=== PATIENT | male | born 2000 | race Caucasian/White ===

== ENCOUNTER 2023-12-18 09:02 | Outpatient (CLI) | payer BC, SELFPAY ==
--- OUTSIDE RECORDS SUMMARY | 2023-12-18 09:05 | XMS_ITS | Clinical Summary ---
[facility] Address [address] [place] [address] Care Team Providers Care Zigzag Topstitcher Name Role Phone No Primary/Referring, Phy Primary Care Provider Unavailable Source Comments You are receiving this document as you are listed as the primary care provider,follow-up provider, or the patient has been referred to you for consultation.This is in compliance with the Medicare and[facility] EHR Incentive Program,which states Providers who transition their patient to another setting of careor provider of care or refers their patient to another provider of care shouldprovide summary care record for each transition of care or referral. [facility] Allergies Active Allergy Reactions Criticality Noted Date Comments Azithromycin Hives 02/13/2003 Penicillins Hives High 05/25/2017 Medications Medication Sig Dispensed Refills Start Date End Date Status clindamycin (AKA CLEOCIN T) 1 % external solution Use on the face daily; Use on the back twice a day 60 mL 2 10/04/2012 Active Additional Information Patient not taking.Reported on 05/25/2017 adapalene (AKA DIFFERIN) 0.1 % cream APPLY TO CLEAN DRY SKIN 1 HOUR BEFORE BEDTIME DIRECTED 90 g 0 05/21/2014 Active citalopram (CELEXA) 10 MG tabletIndications:GA D (generalized anxiety disorder) (HRC) Take 1 Tab by mouth daily. 30 Tab 05/25/2017 Active clonazePAM (KLONOPIN) 1 MG tabletIndications:Pa kendal attacks (HRC),Acute anxiety (HRC) Take 1 Tab by mouth two times daily as needed for Anxiety or Panic Attack. 30 Tab 05/29/2017 Active hydrOXYzine HCl (ATARAX) 50 MG tabletIndications:GA D (generalized anxiety disorder) (HRC) Take 1 Tab by mouth three times a day as needed. 30 Tab 05/29/2017 Active Active Problems Problem Noted Date Diagnosed Date Marijuana use, episodic 05/29/2017 MARKELL (generalized anxiety disorder) 05/26/2017 Acne 10/04/2012 Ventricular septal defect 09/28/2005 Overview: LW Onset: [id number] ; Ventricular Septal Defect Congenital Nocturnal enuresis 09/24/2005 Overview: LW Onset: 12Ftg04 ; Enuresis Nocturnal Sleep Hearing loss 11/16/2002 Overview: Hearing Loss NOS Immunizations Name Administration Dates Next Due 4vHPV (Gardasil) 06/03/2013,01/01/2013 DTaP 02/13/2003, 9,1998,03/16 DTaP/Hib 07/21/1999 HepB Adult (Engerix-B, 20+ y rs, 3 dose series) 1998,1998,1998 Hib (ActHIB) 1998,1998,1998 IPV (Polio) 02/13/2003 MMR 02/13/2003,07/21/1999 Meningococcal MCV4, Unspecif ied Formulation 10/27/2009 OPV, Trivalent (Orimune or tOPV) 1998,05/12,1998 Tdap 10/27/2009 Varicella 10/27/2009,01/28/1999 Family History Medical History Relation Name Comments Anxiety Father Relation Name Status Comments Father Alive Mother Alive Social History Tobacco Use Types Packs/Day Years Used Date Smoking Tobacco: Some Days Pipe Smokeless Tobacco: Never Comments:ecig Alcohol Use Standard Drinks/Week Comments No 0 (1 standard drink = 0.6 oz pur e alcohol) Sex and Gender Information Value Date Recorded Sex Assigned at Not on file Gender Identity Not on file Sexual Orientation Not on file Last Filed Vital Signs Vital Sign Reading Time Taken Comments Blood Pressure 137/80 08/16/2019 1:32 AM ADJUNCT WRITING INSTRUCTOR Pulse 108 08/16/2019 1:32 AM ADJUNCT WRITING INSTRUCTOR Temperature 37.3 ??C (99.1 ??F) 08/16/2019 1:32 AM CS T Respiratory Rate 18 08/16/2019 1:32 AM ADJUNCT WRITING INSTRUCTOR Oxygen Saturation 100% 08/16/2019 1:32 AM ADJUNCT WRITING INSTRUCTOR Inhaled Oxygen Concentration - - Weight 64.9 kg (143 lb) 05/29/2017 1:33 PM ADJUNCT WRITING INSTRUCTOR Height 154.9 cm (5' 1) 05/25/2017 3:12 PM ADJUNCT WRITING INSTRUCTOR Body Mass Index 27.02 05/25/2017 3:12 PM ADJUNCT WRITING INSTRUCTOR Plan of Treatment Health Maintenance Due Date Last Done Comments Hep C Screening (Preventive Services) 1998 Pneumococcal (1 - PCV) 01/11/2004 HIV Screening (Preventive Services) 2014 Adult Preventive Visit 01/11/2016 DTaP/Tdap/Td (7 - Tdap) 10/28/2019 10/28/19 10, 02/13/2003, 07/21/1999, Additional history exists COVID-19 Vaccine ( season) 2023 Influenza (#1) 2024 03/16/2010, 03/17/2009 Zoster/Shingles (1 of 2) 01/11/2048 HepB Completed 1998, 05/12, 1998 Hib Completed 07/21/1999, 01/1999, 1998, Additional history exists IPV (Polio) Completed 02/13/2003, 01/1999, 1998, Additional history exists MCV4 Aged Out 10/27/2009 No longer eligi ble based on patient's age to complete this topic Varicella Completed 10/27/2009, 01/28/1999 HPV Vaccine Completed 06/03/2013, 01/01/2013 HepA Aged Out No longer eligi ble based on patient's age to complete this topic Care Teams Zigzag Topstitcher Relationship Specialty Start Date End Date No Primary/Referring, Phy PCP - General 08/16/19
--- OUTSIDE RECORDS SUMMARY | 2023-12-18 09:05 | XMS_ITS | Referral Summary ---
Author Organization [facility] Address [address] [place] [id number] Care Team Providers Care Agricultural Inspector Name Role Phone No Ref-Primary, Physician Primary Care Provider Allergies No known active allergies Medications Medication Sig Dispensed Refills Start Date End Date Status CITALOPRAM HYDROBROMIDE PO Take 10 mg by mouth daily Active CLONAZEPAM PO Take 1 mg by mouth 2 times daily as needed for anxiety Active HYDROXYZINE HCL PO Take 50 mg by mouth 3 times daily as needed for itching Active Social History Tobacco Use Types Packs/Day Years Used Date Smoking Tobacco: Never Assessed Sex and Gender Information Value Date Recorded Sex Assigned at Not on file Gender Identity Not on file Sexual Orientation Not on file Last Filed Vital Signs Vital Sign Reading Time Taken Comments Blood Pressure 116/73 05/30/2017 6:03 PM SENIOR MECHANICAL PROJECT ENGINEER Pulse - - Temperature 36.6 ??C (97.8 ??F) 05/30/2017 4:10 PM CS T Respiratory Rate 18 05/30/2017 4:10 PM SENIOR MECHANICAL PROJECT ENGINEER Oxygen Saturation 98% 05/30/2017 6:03 PM SENIOR MECHANICAL PROJECT ENGINEER Inhaled Oxygen Concentration - - Weight - - Height - - Body Mass Index - - Plan of Treatment Not on file Care Teams Agricultural Inspector Relationship Specialty Start Date End Date No Ref-Primary, Physician PCP - General 05/30/17
--- OUTSIDE RECORDS SUMMARY | 2023-12-18 09:05 | XMS_ITS | Clinical Summary ---
Author Organization [facility] Address [address] [place] [id number] Care Team Providers Care Human Resources Consultant Name Role Phone No Ref-Primary, Physician Primary [...] Comments Blood Pressure 116/73 05/30/2017 6:03 PM TALLOW PUMPER Pulse - - Temperature 36.6 ??C (97.8 ??F) 05/30/2017 4:10 PM CS T Respiratory Rate 18 05/30/2017 4:10 PM TALLOW PUMPER Oxygen Saturation 98% 05/30/2017 6:03 PM TALLOW PUMPER Inhaled Oxygen Concentration - - Weight - - Height - - Body Mass Index - - Plan of Treatment Not on file Care Teams Human Resources Consultant Relationship Specialty Start Date End Date No Ref-Primary, Physician PCP - General 05/30/17
--- OUTSIDE RECORDS SUMMARY | 2023-12-18 09:05 | XMS_ITS | Data Portability ---
Author Organization [facility] Address [address] [place] [address] [address] [place] [address] Assessment Encounter Date Assessment Date Assessment LastModified by Organization Details LastModified Time 11/12/2018 11/12/2018 OK for admission into residential rehab facility. Pt is free of communicable diseases per self report. Labs: declined blood work Please have patient follow with in house psychiatry. Follow with [facility] as needed estarita Not available 11/12/2018 11:23:55 Plan of Treatment Reminders Order Date Submit Date Provider Last Modified By Organization Details Last Modified Time Details Appointments None recorded. Lab CT + NG RNA, PCR, unspecified specimen 2018 [address] [place] [facility], [address] , [place], [address], 9 06:12:38 Referral None recorded. Procedures None recorded. Surgeries None recorded. Imaging None recorded. Medication Orders None recorded. Patient TargetsNo targets recorded. Patient InstructionsNo instructions recorded. Reason for Referral None Reported. Results Created Date Observation Date Name Description Value Unit Range Abnormal Flag LastModifiedBy Organization Detail LastModifiedTime 11/13/1911/16/2018 CT + NG RNA, PCR, unspe cifie d speci men chlamydia trachomatis, DANIEL Negati ve negati ve Not Available [facility] ([facility]) [address] [place], [address], 11/16/2018 06:12:38 11/13/19 19 11/16/2018 CT + NG RNA, PCR, unspe cifie d speci men neisseria gonorrhoeae, DANIEL Negati ve negati ve Not Available [facility] ([facility]) [address] [place], [address], 11/16/2018 06:12:38 Result Notes None recorded. 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 Medical Equipment None Reported. Allergies Allergen ID Allergen Name Allergen Category Reaction Reaction Severity Criticality Documentation Date Start Date Code Code System Note Provider Name and Address Organization Details Recorded Time 82683 Medicinal product containin g penicilli n and acting as antibacte rial agent (product) medicatio n hives moderate Not available 11/12/2018 86806 05 SNOMED Georgina [place]udd, [place] - [facility] 9 11:22:25 Medications Name Sig Start Date Stop Date Status Note LastModified by Organization Details LastModified Time citalopram 20 mg tablet Take 1 tablet every day by oral route. active Not Available Not Available No t Available Vitals Date Recorded Body height Heart rate Body temperature Oxygen saturation Oxygen saturation in Arterial blood by Pulse oximetry Systolic blood pressure Diastolic blood pressure Provider Name and Address Organization Details Last Updated DateTime 9 170.18 cm 92 /min 98.2 [degF] 96 % 96 % 110 mm[Hg] 70 mm[Hg] Georgina Palacio [place] - [facility] 9 11:26:40 Social History Question Answer Notes LastModified by Organizat ion Details LastModified Time What Is Your Level Of Alcohol Consumption? Heavy [email or web address] Information not available 11/12/2018 What Is Your Level Of Caffeine Consumption? Occasional Information not available 11/12/2018 Are You Currently Employed? Yes [email or web address] Information not available 11/12/2018 What Type Of Diet Are You Following? REGULAR Information not available 11/12/2018 Which Illicit Or Recreational Drugs Have You Used? None Information not available 11/12/2018 Education 12 Information no t available 11/12/2018 What Is Your Occupation? [employer] Information not available 11/12/2018 Are You Sexually Active? No Information not available 11/12/2018 General Stress Level Medium Information not available 11/12/2018 Sex: Unknown Functional Status Question Answer Note LastModified by Organization D etails LastModified Time Are you able to walk? YESWOREST Information not available 11/12/2018 Are you able to care for yourself? Yes Information not available 11/12/2018 Mental Status None recorded. Family History Nothing Reported. Medical History No medical history recorded. Past Encounters Encounter ID Performer Location Encounter Start Date Encounter Closed Date Diagnosis/Indication Diagnosis SNOMED-CT Code [id number] [facility] [address] [place] [id number] 11/12/2018 11:16:10 11/13/2018 14:43:22 Anxiety 98080465 Alcohol dependence 62305 003 Exposure t o sexually transmissible disorder [id number] [facility] [id number] Health Concerns Section Related Observation LastModified by Organization Detai ls LastModified Time None Recorded Concern Status LastModified by Organization Details LastModified Time None Recorded Advance Directives Directive None Recorded Payers Encounter Date Sequence Insurance Name Policy Number Policy Virgen Covered Member ID Virgen Member ID Guarantor Name 11/12/2018 1 [employer] RICHIE RIVAS (PPO) [id number] Jose Bear [id number] Derrell Bear Notes Date Note Type Note Provider Name and Address Organization Details Recorded Time 11/12/2018 text/html HPI Notes: Rozina hightower is being seen today for H & P as prerequisite for admission into residential chemical dependency facility. He reports heavy alcohol use over a period of 1.5 years with a few brief intermittent remissions the course of their dependence. Last drink was 5 days ago. He denies any other drug use. He desires urine STI testing at this time and is a current smoker considering cessation therapy at this time. He is having some troubles sleeping but is feeling well otherwise. [facility] - [facility] 11/12/2018 13:30:58
--- OUTSIDE RECORDS SUMMARY | 2023-12-18 09:05 | XMS_ITS | Continuity of Care Document ---
Author Name [facility] Organization [facility] Care Team Providers Care Take Off Man Name Role Phone [facility] Unavailable Unavailable Vital Signs Combined list of inpatient and outpatient Vital Signs from [facility] and [facility], ranging from 12 months to all on record, depending upon the facility. Vital Sign Value Date Comments Source Procedures Combined list of: 1) Procedures from [facility] facilities going back up to thelast 18 months, not all [place] non-surgical procedures are included; 2) All procedures from the [facility] facilities. Procedure Procedure Type Code Date Perfomer Comments Sourc e No data available for this section Ambulatory P harmacy Assessment and Plan Combined list of future care activities from [facility] facilities (e.g., assessment and plan notes, appointments, orders, and referrals). Additional future care activities may be listed in the Plan of Care section. Result Assessment and Plan Date Source Assessment and Plan Extracted from:Title : Education Note Author: ESTIVEN RODRIGUEZ Date: 12/06/21 Patient Education Materials Follows: 12/18/2023 Ambulatory Pharmacy Functional Status Combined list of recent functional and cognitive assessments recorded at [facility] and [facility] ([place] Functional [place] Measurement (FIM) Scale: 1 = Total Assistance (Subject = 0% +), 2 = Maximal Assistance (Subject = 25% +), 3 = Moderate Assistance (Subject = 50% +), 4 = Minimal Assistance (Subject = 75% +), 5 = Supervision, 6 = Modified Colby (Device), 7 = Complete [place] (Timely, Safely). Assessment Date/Time Source Assessment Type Assessment Skill Assessment Score Assessment Details No data available for this section
== END 2023-12-18 09:03 | disposition home or self-care (01) ==
LOC: RAD 09:03
PROVIDERS: PCP Family Medicine; Visit Provider Family Medicine
DX: Q21.0 Ventricular septal defect (principal)
CPT/HCPCS: 93306